=== PATIENT | female | born 1960 | race Caucasian/White ===

== ENCOUNTER 2019-04-04 15:37 | Emergency (ER) | payer BC ==
[~2019-04-04] VITALS: Ht 152.4 cm; Wt 94.8 kg
[2019-04-04 15:40] VITALS: BP 130/81
--- NOTE | 2019-04-04 15:50 | NUR ---
PT AMBULATED TO BED
--- NOTE | 2019-04-04 16:10 | NUR ---
PT BIB SELF TO THE ED WITH THE CHIEF C/O COUGH, SORE THROAT AND WHEEZING SINCE THURSDAY. PT WAS SEEN BY DOCTOR IN URGENT CARE YESTERDAY. TAKING BENZONATATE, FLUCONAZOLE, KETOCONAZOLE, OMEPRAZOLE, FENOFIBRIC ACID AND AZITHROMYCIN W/O RELIEF OF SYMPTOMS. REPORTSFEVER. TOOK TYLENOL 2 HOURS AGO. STATES GENERALIZED BODY ACHE 10/10. DENIES OTHER PROBLEM AT THIS TIME.
[2019-04-04] MEDS ORDERED: IBUPROFEN 600 MG TAB PO ONE (17:15)
--- NOTE | 2019-04-04 17:37 | NUR ---
PT TAKEN TO X-RAY.
--- NOTE | 2019-04-04 18:22 | NUR ---
NO RESPIRATORY DISTRESS NOTED. VERBALIZED FEELING BETTER.
[2019-04-04 18:40] VITALS: BP 96/51
--- NOTE | 2019-04-04 18:41 | NUR ---
Patient discharged with v/s stable. Written and verbal after care instructions given and explained. Pt encouraged to rest and stay hydrated. Patient alert, oriented and verbalized understanding of instructions. Ambulatory with steady gait. All questions addressed prior to discharge. ID band removed. Patient advised to follow up with PMD. Rx of PROMETHAZINE 6.25MG, PREDNISONE 20MG, AND ALBUTEROL 90MCG WAS given. Patient educated on indication of medication including possible reaction and side effects. Opportunity to ask questions provided and answered.
== END 2019-04-04 18:41 | disposition home or self-care (01) ==
LOC: MED 15:37
DX: J02.8 Acute pharyngitis due to other specified organisms (principal); B97.89 Other viral agents as the cause of diseases classified elsewhere; J40 Bronchitis, not specified as acute or chronic; H61.23 Impacted cerumen, bilateral; K21.9 Gastro-esophageal reflux disease without esophagitis; I10 Essential (primary) hypertension; E78.5 Hyperlipidemia, unspecified; Z88.6 Allergy status to analgesic agent; Z88.5 Allergy status to narcotic agent
CPT/HCPCS: 71046; 87081; 87804; 99284